=== PATIENT | female | born 1955 | race Two or more races ===

== ENCOUNTER 2025-07-16 16:49 | Emergency (ER) | payer OTHER ==
[~2025-07-16] VITALS: Ht 157.5 cm; Wt 81.6 kg
[2025-07-16] MEDS ORDERED: COZAAR100 MG PO (17:11)
[2025-07-16] MEDS ORDERED: LYRICA50 MG PO (17:12)
[2025-07-16] MEDS ORDERED: PEPCID AC20 MG PO (17:12)
[2025-07-16] MEDS ORDERED: CRESTOR40 MG PO (17:12)
[2025-07-16 18:30] LABS: BASO % 0.4 % (0.1-1.2); EOS # 0.06 (0.04-0.54); EOS % 0.7 % (0.7-7.0); LYMPH # 1.05 (1.18-3.74); LYMPH % 12.8 % (19.3-53.1); MEAN PLATELET VOLUME 11.60 fl (9.4-12.4); MONO # 0.15 (0.24-0.82); MONO % 1.8 % (4.7-12.5); NEUT # 6.92 (1.56-6.13); NEUT % 84.1 % (34.0-71.1); RED CELL DISTRIBUTION WIDTH 13.6 % (11.6-14.4)
[2025-07-16 19:03] LABS: INR 0.99
[2025-07-16 19:08] LABS: ALT/SGPT 35.0 U/L (12-78); AST/SGOT 19.0 U/L (15-37); BILIRUBIN TOTAL 0.84 mg/dL (0.3-1.2); BUN CREA RATIO 20.0 (7.0-25.0); CREATININE SERUM 1.16 mg/dL (0.55-1.02); GFR 46.18; GLOBULINA 3.5 G/DL (2.4-3.5); GLUCOSE FASTING 104.0 mg/dL (65-100); OSMOLALITY SERUM 295.0 MOSM/KG (275-295)
[2025-07-16] MEDS ORDERED: MEDROLPACK PO (19:36)
[2025-07-16] MEDS ORDERED: NORFLEX100MG PO (19:36)
[2025-07-16] MEDS ORDERED: CLONIDINE HCL 0.1 MG TABLET PO STA (19:46)
[2025-07-16] MEDS ORDERED: CLONIDINE HCL 0.1 MG TABLET PO ONE (20:17)
== END 2025-07-16 22:12 | disposition home or self-care (01) ==
LOC: ER 16:49
PROVIDERS: Physician Assistant Medical
DX: S49.81XA Other specified injuries of right shoulder and upper arm, initial encounter (principal); W18.39XA Other fall on same level, initial encounter; Y93.89 Activity, other specified; Y92.89 Other specified places as the place of occurrence of the external cause; S69.81XA Other specified injuries of right wrist, hand and finger(s), initial encounter; S89.81XA Other specified injuries of right lower leg, initial encounter; M19.90 Unspecified osteoarthritis, unspecified site; I10 Essential (primary) hypertension